=== PATIENT | male | born 1990 | race Caucasian/White ===

== ENCOUNTER 2020-02-15 14:46 | Emergency (ER) | payer MEDICAID, OTHER ==
[~2020-02-15] VITALS: Ht 170.2 cm; Wt 69.5 kg
--- NOTE | 2020-02-15 17:01 | NUR ---
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
[2020-02-15 17:04] VITALS: BP 151/99
--- NOTE | 2020-02-15 17:24 | NUR ---
Patient given discharge instructions and they have confirmed that they understand the instructions. Patient ambulatory with steady gait.
== END 2020-02-15 17:25 | disposition home or self-care (01) ==
LOC: ED 17:19
DX: S43.51XA Sprain of right acromioclavicular joint, initial encounter (principal); S50.811A Abrasion of right forearm, initial encounter; S50.311A Abrasion of right elbow, initial encounter; V29.9XXA Motorcycle rider (driver) (passenger) injured in unspecified traffic accident, initial encounter; Y93.89 Activity, other specified; Y92.89 Other specified places as the place of occurrence of the external cause; Y99.8 Other external cause status
CPT/HCPCS: 99283

== ENCOUNTER 2020-10-09 00:50 | Emergency (ER) | payer MEDICAID ==
[~2020-10-09] VITALS: Ht 167.6 cm; Wt 72.1 kg
--- NOTE | 2020-10-09 01:08 | NUR ---
Pt presents with 2 cm lac to right hand- unsure how deep it is. Reports he cut it on a meth pipe. Reports had a tetanus shot less than 5 years ago. Unable to straighten right wrist and place hand in supine position due to cerebral palsy. Denies any other injury. Arrived with a sticky piece of gauze on it that is gum like consistency and was peeled off by this RN- reports he friend had it and put it on the cut.
[2020-10-09] MEDS ORDERED: LIDOCAINE-MPF 2% ,5ML ONE (01:12)
[2020-10-09] MEDS ORDERED: LIDOCAINE-MPF 1%, 2ML ONE (01:18)
--- NOTE | 2020-10-09 01:22 | NUR ---
XR at bedside.
[2020-10-09] MEDS ORDERED: NEOSPORIN OINT. PKT 1 PACKET ONE (01:26)
[2020-10-09] MEDS ORDERED: LIDOCAINE-MPF 1%, 5ML INFIL ONE (01:30)
--- NOTE | 2020-10-09 01:34 | NUR ---
Suture supplies at bedside.
--- NOTE | 2020-10-09 01:52 | NUR ---
Wound was numbed by provider. Now being cleaned by tech.
--- NOTE | 2020-10-09 02:18 | NUR ---
1 stitch placed. Dressing applied.
[2020-10-09 02:19] VITALS: BP 117/82
== END 2020-10-09 02:50 | disposition home or self-care (01) ==
LOC: ED 02:30
DX: S61.431A Puncture wound without foreign body of right hand, initial encounter (principal); S61.411A Laceration without foreign body of right hand, initial encounter; X58.XXXA Exposure to other specified factors, initial encounter; Y93.89 Activity, other specified; Y92.009 Unspecified place in unspecified non-institutional (private) residence as the place of occurrence of the external cause; Y99.8 Other external cause status
CPT/HCPCS: 12041; 99284